=== PATIENT | male | born 1970 | race Caucasian/White ===

== ENCOUNTER 2017-07-01 03:32 | Emergency (ER) | payer BC ==
[2017-07-01 03:39] VITALS: BP 168/93
--- NOTE | 2017-07-01 04:07 | ER Document Report ---
ED GI/ - General Chief Complaint: Abdominal Pain Stated Complaint: ABDOMINAL PAIN Time Seen by Provider: 07/01/17 04:06 Mode of Arrival: Ambulatory Information source: Patient Notes: Patient is a 46-year-old male who presents to the ER today for right flank pain radiating into his right groin that woke him up from sleep at approximately 2 AM this morning. Patient has had nausea and just had an episode of vomiting prior to arrival. He has no history of kidney stones, no hernia that he knows of, denies any burning with urination or urinary hesitancy or frequency. He denies any fevers or chills or any symptoms at all prior to going to sleep last night. TRAVEL OUTSIDE OF THE [place] IN LAST 30 DAYS: No - Related Data Allergies/Adverse Reactions: No Known Allergies Allergy (Verified 07/01/17 04:50) Past Medical History - General Information source: Patient - Social History Smoking Status: Never Smoker Family History: Reviewed & Not Pertinent Review of Systems - Review of Systems Constitutional: No symptoms reported EENT: No symptoms reported Cardiovascular: No symptoms reported Respiratory: No symptoms reported Gastrointestinal: No symptoms reported Genitourinary: See HPI Male Genitourinary: No symptoms reported Musculoskeletal: No symptoms reported Skin: No symptoms reported Hematologic/Lymphatic: No symptoms reported Neurological/Psychological: No symptoms reported Physical Exam - Vital signs Vitals: Temp Pulse Resp BP Pulse Ox 98.6 F 83 20 168/93 H 98 07/01/17 03:38 07/01/17 03:38 07/01/17 03:38 07/01/17 03:38 07/01/17 03:38 - Notes Notes: PHYSICAL EXAMINATION: GENERAL: Obviously uncomfortable, but in no acute distress. HEAD: Atraumatic, normocephalic. EYES: Pupils equal round and reactive to light, extraocular movements intact, sclera anicteric, conjunctiva are normal. NECK: Normal range of motion, supple without lymphadenopathy LUNGS: CTAB and equal. No wheezes rales or rhonchi. HEART: Regular rate and rhythm without murmurs ABDOMEN: Soft, no tenderness. No guarding, no rebound BACK: no vertebral tenderness, normal ROM GI/: Right CVA tenderness EXTREMITIES: Normal range of motion, no pitting edema. No cyanosis. NEUROLOGICAL: Cranial nerves grossly intact. Normal sensory/motor exams. PSYCH: Normal mood, normal affect. SKIN: Warm, Dry, normal turgor, no rashes or lesions noted Course - Re-evaluation Re-evalutation: 07/01/17 05:54 Patient has 2 mm stone at the distal right ureter with some perinephric stranding and hydronephrosis. Patient was able to urinate without difficulty here. Patient given Flomax, will be sent home with pain medication and nausea medication. Patient completely pain-free with Toradol here. He has not vomited since Zofran. I did provide urology information in [facility] for patient to follow-up with. No sign of infection on urinalysis. 07/01/17 05:55 - Vital Signs Vital signs: Temp Pulse Resp BP Pulse Ox 98.6 F 83 20 168/93 H 98 07/01/17 03:38 07/01/17 03:38 07/01/17 03:38 07/01/17 03:38 07/01/17 03:38 - Laboratory Result Diagrams: 07/01/17 04:25 07/01/17 04:25 Laboratory results interpreted by me: 07/01/17 07/01/17 07/01/17 04:25 04:25 05:25 RBC 5.72 H Seg Neutrophils % 80.6 H Lymphocytes % 12.4 L Creatinine 1.42 H Est GFR (Non-Af Amer) 54 L Glucose 143 H Total Bilirubin 1.6 H Urine Urobilinogen 4.0 H Discharge - Discharge Clinical Impression: Kidney stone Condition: Stable Disposition: HOME, SELF-CARE Instructions: Kidney Stone ([facility]) Additional Instructions: Return immediately for any new or worsening symptoms. Follow up with urologist if symptoms do not resolve in 7 days. [facility] [place] Office [address] [place], [place] [phone] [place] [facility] [address] [place], [place] [phone] Prescriptions: Ondansetron [Zofran Odt 4 mg Tablet] 1 - 2 tab PO Q4H PRN #30 tab.rapdis PRN Reason: For Nausea/Vomiting Oxycodone HCl/Acetaminophen [Percocet 5-325 mg Tablet] 1 - 2 tab PO Q4H PRN #25 tablet PRN Reason: Tamsulosin HCl [Flomax] 0.4 mg PO DAILY #7 cap.er.24h Forms: Return to Work
[2017-07-01] MEDS ORDERED: KETOROLAC TROMETHAMINE INJ/PF 30 MG/1 ML SDV IV ONE (04:14)
[2017-07-01] MEDS ORDERED: NORMAL SALINE 1000 ML 1,000 ML IV ONE (04:14)
[2017-07-01] MEDS ORDERED: ONDANSETRON HCL INJ/PF 4 MG/2 ML SDV IV ONE (04:14)
[2017-07-01 04:43] LABS: ABSOLUTE LYMPHOCYTES (AUTO) 1.2 10^3/uL (0.5-4.7); ABSOLUTE MONOCYTES (AUTO) 0.6 10^3/uL (0.1-1.4); ABSOLUTE NEUT (AUTO) 7.7 10^3/uL (1.7-8.2); BASOPHILS % (AUTO) 0.3 % (0-2); EOSINOPHILS % (AUTO) 0.4 % (0-6); HEMATOCRIT 47.2 % (37.9-51.0); HEMOGLOBIN 16.4 g/dL (13.5-17.0); LYMPHOCYTES % (AUTO) 12.4 % (13-45); MEAN CORPUSCULAR HEMOGLOBIN 28.6 pg (27.0-33.4); MEAN CORPUSCULAR HGB CONC 34.7 g/dL (32.0-36.0); MEAN CORPUSCULAR VOLUME 83 fl (80-97); MONOCYTES % (AUTO) 6.3 % (3-13); PLATELET COUNT 199 10^3/uL (150-450); RED BLOOD COUNT 5.72 10^6/uL (4.35-5.55); RED CELL DISTRIBUTION WIDTH 13.5 % (11.5-14.0); SEGMENTED NEUTROPHILS % (AUTO) 80.6 % (42-78); TOTAL CELLS COUNTED % (AUTO) 100 %; WHITE BLOOD COUNT 9.5 10^3/uL (4.0-10.5)
[2017-07-01 04:57] LABS: ALANINE AMINOTRANSFERASE 65 U/L (21-72); ALBUMIN 4.7 g/dL (3.5-5.0); ALKALINE PHOSPHATASE 70 U/L (38-126); ANION GAP 10 (5-19); ASPARTATE AMINO TRANSFERASE 39 U/L (17-59); BILIRUBIN,DIRECT 0.4 mg/dL (0.0-0.4); BILIRUBIN,TOTAL 1.6 mg/dL (0.2-1.3); BLOOD UREA NITROGEN 20 mg/dL (7-20); CALCIUM 10.1 mg/dL (8.4-10.2); CARBON DIOXIDE 30 mmol/L (22-30); CHLORIDE 101 mmol/L (98-107); GLUCOSE 143 mg/dL (75-110); POTASSIUM 3.7 mmol/L (3.6-5.0); SODIUM 141.1 mmol/L (137-145); TOTAL PROTEIN 7.5 g/dL (6.3-8.2)
--- NOTE | 2017-07-01 05:01 | RADIOLOGY REPORT (SQ) ---
EXAM DESCRIPTION: CT LTD RENAL STONE PROTOCOL ON COMPLETED DATE/TIME: 07/01/2017 4:48 am REASON FOR STUDY: right flank pain into groin COMPARISON: None. TECHNIQUE: CT scan of the abdomen and pelvis performed without intravenous or oral contrast. Images reviewed with lung, soft tissue, and bone windows. Reconstructed coronal and sagittal MPR images revi ewed. All images stored on PACS. All CT scanners at this facility use dose modulation, iterative reconstruction, and/or weight based d osing when appropriate to reduce radiation dose to as low as reasonably achievable (ALARA). [facility]: Dose Right [facility]: CareDose [facility]: Dose Right [facility]: Teradose 4D [facility]: [employer] RADIATION DOSE: CT Rad equipment meets quality standard of care and radiation dose reduction techniq ues were employed. CTDIvol: 18.8 mGy. DLP: 1122 mGy-cm.mGy. LIMITATIONS: None. FINDINGS: LOWER CHEST: No consolidation or pleural effusion. NON-CONTRASTED LIVER, SPLEEN, ADRENALS: Evaluation limited by lack of IV contrast. No identified sign ificant masses. PANCREAS: No peripancreatic inflammatory changes. GALLBLADDER: Present. RIGHT KIDNEY AND URETER: There is mild right-sided perinephric stranding. There is mild right hydr onephrosis. A 2 mm calculus is seen at the distal right ureter, in the pelvis. LEFT KIDNEY AND URETER: No significant calcifications. No hydronephrosis or hydroureter. AORTA AND RETROPERITONEUM: No abdominal aortic aneurysm. No retroperitoneal masses or adenopathy. BOWEL AND PERITONEAL CAVITY: No dilated bowel loops or inflammatory changes. No free fluid. There is colonic diverticulosis with no CT evidence of acute diverticulitis APPENDIX: Normal. PELVIS, BLADDER, AND ABDOMINAL WALL:No abnormal masses. No free fluid. Bladder decompressed. BONES: Mild multilevel degenerative changes in the spine. IMPRESSION: 1. 2 mm obstructing calculus at the distal right ureter with mild right-sided perineph fabi stranding and mild right hydronephrosis. 2. Colonic diverticulosis. COMMENT: Quality ID # [id number]: Final reports with documentation of one or more dose reduction techniques (e.g., Automated exposure control, adjustment of the mA and/or kV according to patient size, use of iterative reconstruction technique) TECHNICAL DOCUMENTATION: JOB ID: [id number] [employer]- All Rights Reserved
[2017-07-01] MEDS ORDERED: TAMSULOSIN HCL 0.4 MG CAP.SR.24H PO ONE (05:13)
[2017-07-01 05:49] LABS: APPEARANCE,URINE CLEAR; BILIRUBIN,URINE NEGATIVE (NEGATIVE); COLOR,URINE YELLOW; GLUCOSE, URINE NEGATIVE (NEGATIVE); KETONES,URINE NEGATIVE (NEGATIVE); LEUKOCYTE ESTERASE,URINE NEGATIVE (NEGATIVE); NITRITE,URINE NEGATIVE (NEGATIVE); PROTEIN,URINE NEGATIVE (NEGATIVE); URINE SPECIFIC GRAVITY 1.023
== END 2017-07-01 05:59 | disposition home or self-care (01) ==
LOC: ER 03:32
DX: N20.0 Calculus of kidney (principal); R10.9 Unspecified abdominal pain; R11.2 Nausea with vomiting, unspecified
CPT/HCPCS: 99284; 96361; 96374; 96375; 36415; 83690; 85025; 80053; 81001; 76380; J1885; J2405; J7030